=== PATIENT | male | born 1965 | race Caucasian/White ===

== ENCOUNTER 2019-01-31 13:18 | Emergency (ER) | payer BC ==
[2019-01-31] MEDS ORDERED: Lidocaine 1% PF 5 ML VIAL ONE (13:29)
[2019-01-31] MEDS ORDERED: Adacel (T-DAP) 0.5 ML SYRINGE ONE (13:56)
[2019-01-31] MEDS ORDERED: Bacitracin 1 PK ONE (14:04)
== END 2019-01-31 14:08 | disposition home or self-care (01) ==
LOC: SCSER 13:18
DX: S91.311A Laceration without foreign body, right foot, initial encounter (principal); W20.8XXA Other cause of strike by thrown, projected or falling object, initial encounter
CPT/HCPCS: 12001; 90471; 90715; J2001